=== PATIENT | female | born 1970 | race Caucasian/White ===

== ENCOUNTER 2018-02-24 05:41 | Observation (INO) | payer BC ==
--- NOTE | 2018-02-23 10:40 | PDHPUP ---
History & Physical Update H&P update statement: This history and physical update is based on an assessment of the patient which was completed after admission or registration (within 24 hours), but prior to the surgery/procedure. H&P update: no change in patient's condition since H&P completed
[2018-02-24] MEDS ORDERED: LIDOCAINE 1% 2 ML INJ ID PRN (05:54)
[2018-02-24] MEDS ORDERED: LR 1,000 ML IV ONE (05:54)
[2018-02-24] MEDS ORDERED: ceFAZolin 2 GM/DEXTROSE 100 ML IV ONE (06:00)
[2018-02-24] MEDS ORDERED: MIDAZOLAM 2 MG/2 ML VIAL IVP ONE (07:17)
--- NOTE | 2018-02-24 07:18 | PDANEPAE ---
ANE History of Present Illness abdominal pain ANE Past Medical History - Cardiovascular History Hx Hypertension: No Hx Arrhythmias: No Hx Chest Pain: No Hx Coronary Artery / Peripheral Vascular Disease: No Hx CHF / Valvular Disease: No Hx Palpitations: No - Pulmonary History Hx COPD: No Hx Asthma/Reactive Airway Disease: No Hx Recent Upper Respiratory Infection: No Hx Oxygen in Use at Home: No Hx Sleep Apnea: No Sleep Apnea Screening Result - Last Documented: Negative - Neurologic History Hx Cerebrovascular Accident: No Hx Seizures: No Hx Dementia: No - Endocrine History Hx Diabetes: No - Renal History Hx Renal Disorders: No - Liver History Hx Hepatic Disorders: No - Neurological & Psychiatric Hx Hx Neurological and Psychiatric Disorders: Yes Neurological / Psychiatric History Comment: pt states mild anxiety - Cancer History Hx Cancer: No - Congenital Disorder History Hx Congenital Disorders: No - GI History Hx Gastrointestinal Disorders: No - Other Health History Other Health History: exema as a child. hx of uterine fibroids. galsses for reading - Chronic Pain History Chronic Pain: No - Surgical History Prior Surgeries: . Myomectomy. [place] tooth extraction ANE Review of Systems Review of Systems: - Exercise capacity METS (RN): 4 METS ANE Patient History - Allergies Allergies/Adverse Reactions: No Known Allergies Allergy (Verified 02/16/18 13:28) - Home Medications Home Medications: Acetaminophen [Tylenol 325mg (*)] 325 mg PO DAILY PRN 02/16/18 [Last Taken 02/19] Herbals/Supplements -Info Only 1 ea PO DAILY 02/16/18 [Last Taken 02/10/18] - NPO status NPO Since - Liquids (Date): 02/24/18 NPO Since - Liquids (Time): 04:30 NPO Since - Solids (Date): 02/23/18 NPO Since - Solids (Time): 20:30 - Smoking Hx Smoking Status: Never smoked - Family Anes Hx Family Hx Anesthesia Complications: none ANE Labs/Vital Signs - Vital Signs Blood Pressure: 116/74 Heart Rate: 70 Respiratory Rate: 18 O2 Sat (%): 95 Height: 162.56 cm Weight: 77.111 kg ANE Physical Exam - Airway Neck exam: FROM Mallampati Score: Class 1 Mouth exam: normal dental/mouth exam - Pulmonary Pulmonary: no respiratory distress - Cardiovascular Cardiovascular: regular rate and rhythym - ASA Status ASA Status: I ANE Anesthesia Plan Anesthesia Plan: general endotracheal anesthesia, spinal
[2018-02-24] MEDS ORDERED: morphINE PF 5 MG/10 ML INJ ONE (07:22)
[2018-02-24] MEDS ORDERED: fentaNYL 100 MCG/2 ML INJ ONE (07:22)
[2018-02-24] MEDS ORDERED: PROPOFOL 200 MG/20 ML VIAL ONE (07:22)
[2018-02-24] MEDS ORDERED: SCOPOLAMINE HYDROBROMIDE 1 MG/3 DAYS PATCH TD ONE (07:23)
[2018-02-24] MEDS: OXYTOCIN 10 UNIT/ML VIAL ONE ×2 (08:23→09:03)
[2018-02-24] MEDS ORDERED: ONDANSETRON 4 MG/2 ML VIAL IVP PRN (08:34)
[2018-02-24] MEDS ORDERED: NALOXONE HCL 0.4 MG/ML INJ IVP PRN ×2 (08:34→08:36)
[2018-02-24] MEDS ORDERED: PROMETHAZINE HCL 25 MG/ML INJ IVP PRN (08:36)
[2018-02-24] MEDS ORDERED: DEXAMETHASONE 4 MG/ML VIAL IVP PRN (08:36)
[2018-02-24] MEDS ORDERED: fentaNYL 100 MCG/2 ML INJ IVP PRN (08:36)
[2018-02-24] MEDS ORDERED: HYDROmorphONE/DILAUDID 1 MG/ML INJ IVP PRN (08:36)
[2018-02-24] MEDS ORDERED: ONDANSETRON 4 MG/2 ML VIAL ONE (08:58)
[2018-02-24] MEDS ORDERED: DEXAMETHASONE 4 MG/ML VIAL ONE (08:58)
[2018-02-24] MEDS ORDERED: ROCURONIUM 50 MG/5 ML VIAL ONE (08:58)
--- NOTE | 2018-02-24 10:18 | POSTANESTH ---
Post Anesthetic Evaluation Cardiovascular Status: Normal, Stable Respiratory Status: Normal, Stable Level of Consciousness/Mental Status: Can Participate in Eval Pain Control: Adequate, Prn Tx Ordered Nausea/Vomiting Control: Adequate, Prn Tx Ordered Complications Possibly Related to Anesthesia: None Noted
--- NOTE | 2018-02-24 10:46 | POSTOPPROG ---
Post Op Note Date of Operation: 02/24/18 Surgeon: Amairani Calderón Process Specialist: KRISTEN Mosquera Anesthesiologist: Catrachita Lane MD Anesthesia: LMA, Spinal Pre-op Diagnosis: symptomatic fibroid, anemia Post-op Diagnosis: same, 14 week fibroid Indication: same Procedure: difficult TVH, intravaginal morcellation of fibroid, bilateral salpingectom Findings: 14 week sized fibroid Inf/Abcess present in the surg proc area at time of surgery?: No EBL: 100-500 Specimen(s): uterus , cervix , fallopian tubes
[2018-02-24] MEDS ORDERED: HYDROCODONE/APAP 5/325 TAB PO PRN (10:55)
[2018-02-24] MEDS ORDERED: LR 1,000 ML IV SCH (11:00)
--- NOTE | 2018-02-24 17:12 | GOP ---
[f rep st] OPERATIVE REPORT DATE OF OPERATION: 02/24/2018 SURGEON: Amairani Calderón MD MECHANICAL ENGINEER: KRISTEN Ford. ANESTHESIA: She had a spinal morphine and then general with LMA. ANESTHESIOLOGIST: Catrachita Lane M.D. PREOPERATIVE DIAGNOSIS: Large symptomatic uterine fibroids. POSTOPERATIVE DIAGNOSIS: Large symptomatic uterine fibroids. PROCEDURE PERFORMED: Very difficult vaginal hysterectomy with morcellation of uterine fibroids and b ilateral salpingectomy. FINDINGS: Was a very large uterus with submucosal fibroid. The uterus itself probably measured abou t 14 weeks size. ESTIMATED BLOOD LOSS: Was 400 cc. INDICATIONS: The patient is a 48-year-old who was noted to have a quite large submucosal fibroid, ap proximately 5 cm. She underwent partial hysteroscopic myomectomy and NovaSure ablation at a [facility] facility approximately a year ago and had return of very, very heavy bleeding soon afterwards and u ltrasound showed that the fibroid was still the same size, if not slightly larger, and she was contin ued to have problematic bleeding and desires definitive treatment. DESCRIPTION OF PROCEDURE: With informed consent signed, patient taken to the operating room and plac ed under spinal then general anesthesia. Placed in the high dorsal lithotomy position, prepped and d raped in the usual sterile fashion. The tenaculum placed on the cervix and posterior colpotomy perfo rmed using the To scissors. The edges of the peritoneum were sewn into the vaginal mucosa with a b aseball stitch for hemostasis. Next, the left uterosacral ligament was clamped, cut, suture ligated. The same was done on the right. The left cardinal ligament was clamped, cut, and suture ligated. The same was done on the right. The cervix was very long, so several bites up the cervix were done a nd then there was some difficulty with entering the anterior cul-de-sac, most likely due to history o f previous , so because it was difficult to enter the cul-de-sac, I inverted the uterus so t hat the fundus was protruding out of the vagina and then 20 cc of dilute Pitressin injected into the fundus and morcellation of the uterine fibroid done within the vagina to loosen up the uterus. Once it was felt that about 80% of the fibroid had been removed then the uterus re-inverted and then very carefully entered the anterior cul-de-sac and then the utero-ovarian ligament was clamped, cut, and s uture ligated on each side and then the rest of the uterus was removed. This process took at least 7 0 minutes and there was moderate blood loss for this. Next, the left fallopian tube was identified a nd it was clamped across the vasculature between the fallopian tube and the ovary with 2 Keyana clamps . The fallopian tube was removed and handed off for specimen and then each Keyana clamp was suture li gated and hemostasis was noted on the right. The same process was done on the left. Ovaries appeare d normal and all the pedicles were reinspected and noted to be hemostatic and then there was some ooz ing areas from the vagina, so the vaginal cuff was closed with 0 Vicryl in [id number] sutures. Hemostasis was noted. Patient was placed in the supine position, awakened in the operating room, radha en to recovery room in stable condition. Tolerated procedure well. Again, this was a very complicat ed vaginal hysterectomy. Entire surgery time was 2 hours. COMPLICATIONS: None. /[id number]/MODL
[2018-02-24] MEDS: IBUPROFEN 600 MG TAB PO SCH ×3 (17:21→23:29)
[2018-02-25] MEDS: IBUPROFEN 600 MG TAB PO SCH ×2 (05:24→13:16)
--- NOTE | 2018-02-25 10:45 | SOAPPROG ---
SOAP Progress Note Assessment/Plan: Assessment:POD #1 , eating well and no pain , was light headed with going to the bathroom so back in bed , Plan:will monitor over the next hour or 2 and likely d/c home soon after 02/25/18 10:42 Subjective: no pain and min bleeding , eating well , light headed with ambulating this am Objective: lungs CTA , abd soft , few BS , min bleeding Vital Signs Temp Pulse Resp BP Pulse Ox 36.1 C 62 16 88/58 L 100 02/25/18 07:37 02/25/18 07:37 02/25/18 07:37 02/25/18 07:37 02/25/18 07:37 Laboratory Results 02/25/18 05:30 02/24/18 02/25/18 02/26/18 05:59 05:59 05:59 Intake Total 3500 1400 Output Total 3575 Balance -75 1400 ICD10 Worksheet Patient Problems: Problems Problem Status Onset Fibroids, submucosal Acute - ICD10 Problem Qualifiers (1) Fibroids, submucosal
[2018-02-25 11:36] VITALS: BP 88/54
== END 2018-02-25 13:30 | disposition home or self-care (01) ==
LOC: F3E 05:41 → FOB 12:00
PROVIDERS: ADMIT Obstetrics & Gynecology Gynecology; ATTEND Obstetrics & Gynecology Gynecology
PROC: 0UT97ZL Resection of Uterus, Supracervical, Via Natural or Artificial Opening (ICD-10-PCS; principal; 2018-02-24 07:15)
PROC: 0UT77ZZ Resection of Bilateral Fallopian Tubes, Via Natural or Artificial Opening (ICD-10-PCS; principal; 2018-02-24 07:15)
DX: D25.9 Leiomyoma of uterus, unspecified (principal); N92.0 Excessive and frequent menstruation with regular cycle
CPT/HCPCS: 58262; G0378; J0690; J1100; J1200; J2250; J2274; J2405; J2590; J2704; J3010